=== PATIENT | male | born 2000 | race Caucasian/White ===

== ENCOUNTER 2019-06-22 08:58 | Emergency (ER) | payer MEDICAID ==
[~2019-06-22] VITALS: Ht 190.5 cm; Wt 127.3 kg
[2019-06-22 09:03] VITALS: Ht 190.5 cm; Wt 127.3 kg
[2019-06-22 10:10] LABS: APPEARANCE CLEAR (CLEAR); BILIRUBIN NEGATIVE (NEGATIVE); COLOR YELLOW (YELLOW); GLUCOSE NEGATIVE (NEGATIVE); KETONE NEGATIVE (NEGATIVE); NITRITE NEGATIVE (NEGATIVE); PROTEIN NEGATIVE (NEGATIVE); UROBILINOGEN NORMAL (NORMAL)
[2019-06-22] MEDS ORDERED: SKELAXIN800 MG PO (10:43)
[2019-06-22] MEDS ORDERED: NAPROSYN500 MG PO (10:43)
[2019-06-22 11:43] VITALS: BP 132/80
== END 2019-06-22 11:43 | disposition home or self-care (01) ==
LOC: D.ER 08:58
PROVIDERS: Family Medicine
DX: S20.219A Contusion of unspecified front wall of thorax, initial encounter (principal); S00.33XA Contusion of nose, initial encounter; V89.0XXA Person injured in unspecified motor-vehicle accident, nontraffic, initial encounter; Y93.9 Activity, unspecified; Y92.9 Unspecified place or not applicable